=== PATIENT | female | born 1975 | race Hispanic/Latino ===

== ENCOUNTER 2019-07-17 20:39 | Emergency (ER) | payer SELFPAY ==
[2019-07-17] MEDS ORDERED: LEVALBUTEROL 1.25 MG/3 ML NEB ONE (23:09)
[2019-07-17] MEDS ORDERED: ACETAMINOPHEN 500 MG TAB ONE ×2 (23:10→23:25)
[2019-07-17 23:43] LABS: Absolute Lymphocytes (CBC) 3.1 K/uL (0.7-4.9); Basophils % 0.6 % (0-1.3); Hematocrit 44.5 % (36.0-45.0); MPV 7.2 fL (7.6-11.3); Protime INR 1.04; RBC Red Blood Cell Count 4.72 M/uL (3.86-4.86)
[2019-07-17 23:46] LABS: Urine Blood NEGATIVE (NEG); Urine Glucose NEGATIVE (NEG); Urine Protein NEGATIVE (NEG)
[2019-07-18 00:03] LABS: ALT/SGPT 51 U/L (12-78); AST/SGOT 36 U/L (15-37); Albumin 3.9 g/dL (3.4-5.0); Alkaline Phosphatase 134 U/L (45-117); BUN Blood Urea Nitrogen 11 mg/dL (7-18); Bicarbonate 27 mmol/L (21-32); Bilirubin Direct 0.1 mg/dL (0-0.2); Bilirubin Total 0.4 mg/dL (0.2-1.0); Glucose Level 99 mg/dL (74-106); Lipase 143 U/L (73-393); Magnesium 2.3 mg/dL (1.8-2.4); NT PRO-BNP 12 pg/mL (<125); Potassium 4.1 mmol/L (3.5-5.1); Protein, Total 8.4 g/dL (6.4-8.2); Sodium Level 141 mmol/L (136-145); Troponin (Emerg Dept Use Only) < 0.02 ng/mL (0.0-0.045)
--- NOTE | 2019-07-18 02:19 | ER ---
Nurse's Notes [facility] Name: Mee Cassidy Age: 43 yrs Sex: Female : 1975 Arrival Date: 07/17/2019 Time: 20:54 Bed 18 Private MD: Diagnosis: cough;L Flank pain Presentation: 07/17 21:06 Presenting complaint: Patient states: left side pain X10 days [employer]. pt does not speak ak1 brazilian. Transition of care: patient was not received from another setting of care. Onset of symptoms is unknown. Risk Assessment: Do you want to hurt yourself or someone else? Patient reports no desire to harm self or others. Initial Sepsis Screen: Does the patient meet any 2 criteria? No. Patient's initial sepsis screen is negative. Does the patient have a suspected source of infection? No. Patient's initial sepsis screen is negative. Care prior to arrival: None. 21:06 Method Of Arrival: Ambulatory ak1 21:06 Acuity: MIYA 3 ak1 Triage Assessment: 21:07 General: Appears in no apparent distress. Behavior is calm, cooperative. 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 - Social history:: Smoking status: unknown. - Ebola Screening: : No symptoms or risks identified at this time. - Family history:: not pertinent. - Hospitalizations: : No recent hospitalization is reported. Screenin:38 Abuse screen: Denies threats or abuse. Denies injuries from another. Nutritional mg2 screening: No deficits noted. Tuberculosis screening: No symptoms or risk factors identified. Fall Risk IV access (20 points). Assessment: 23:36 General: Appears in no apparent distress. comfortable, Behavior is calm, cooperative. mg2 Pain: Complains of pain in left flank Pain does not radiate. Pain currently is 5 out of 10 on a pain scale. Quality of pain is described as aching, Pain began gradually, Is intermittent. Neuro: Level of Consciousness is awake, alert, obeys commands, Oriented to person, place, time, situation. Cardiovascular: Capillary refill < 3 seconds Patient's skin is warm and dry. Respiratory: Airway is patent Respiratory effort is even, unlabored, Respiratory pattern is regular, symmetrical. GI: No signs and/or symptoms were reported involving the gastrointestinal system. : Urine is clear, pls see urine dip. : Reports pain in left flank(s). EENT: No signs and/or symptoms were reported regarding the EENT system. Derm: Skin is intact, is healthy with good turgor, Skin is pink, warm \T\ dry. normal. Musculoskeletal: Circulation, motion, and sensation intact. Capillary refill < 3 seconds. 07/18 00:44 Reassessment: Patient appears in no apparent distress at this time. Patient and/or tr5 family updated on plan of care and expected duration. Pain level reassessed. Patient is alert, oriented x 3, equal unlabored respirations, skin warm/dry/pink. 01:40 Reassessment: Patient appears in no apparent distress at this time. Patient and/or tr5 family updated on plan of care and expected duration. Pain level reassessed. Patient is alert, oriented x 3, equal unlabored respirations, skin warm/dry/pink. 02:40 Reassessment: Patient appears in no apparent distress at this time. Patient and/or jb4 family updated on plan of care and expected duration. Pain level reassessed. Patient is alert, oriented x 3, equal unlabored respirations, skin warm/dry/pink. PT and family verbalized understanding of d/c and follow up instructions. Ambulated out of ED with steady gait. Vital Signs: 07/17 21:07 BP 145 / 104; Pulse 73; Resp 16; Temp 98; Pulse Ox 98% on R/A; Weight 81.65 kg (R); ak1 Height 5 ft. 3 in. (160.02 cm) (R); Pain 6/10; 23:38 BP 146 / 96; Pulse 75; Resp 18; Pulse Ox 100% on R/A; mg2 07/18 00:44 BP 135 / 95; Pulse 77; Resp 15; Pulse Ox 97% on R/A; tr5 01:40 BP 134 / 87; Pulse 67; Resp 18; Pulse Ox 96% on R/A; tr5 02:40 BP 131 / 88; Pulse 74; Resp 16; Pulse Ox 100% on R/A; jb4 07/17 21:07 Body Mass Index 31.89 (81.65 kg, 160.02 cm) ak1 ED Course: 07/17 20:54 Patient arrived in ED. ak1 21:07 Triage completed. ak1 21:07 Arm band placed on Patient placed in waiting room, Patient notified of wait time. ak1 22:27 Naldo Barrett, MARCELINA is Primary Nurse. mg2 22:44 Eldon Yen MD is Attending Physician. wa 23:32 Bed in low position. Call light in reach. Side rails up X 1. Warm blanket given. Verbal jp3 reassurance given. environmental monitoring specialist on. Pulse ox on. NIBP on. 23:32 EKG done, by ED staff, reviewed by Eldon Yen MD. jp3 23:38 No provider procedures requiring assistance completed. Inserted saline lock: 20 gauge mg2 in right antecubital area, using aseptic technique. Blood collected. 07/18 00:20 X-ray completed. Patient tolerated procedure well. kw 00:22 Radiology exam delayed due to IV insertion attempt and/or patient not having kw appropriate IV at this time. patient receiving breathing treatment at this time. EKG. 01:01 XRAY Chest Pa And Lat (2 Views) In Process Unspecified. EDMS 01:34 Stone Protocol In Process Unspecified. EDMS 02:17 Addison Bergman MD is Referral Physician. wa 02:40 IV discontinued, intact, bleeding controlled, No redness/swelling at site. Pressure jb4 dressing applied. Administered Medications: 07/17 23:35 Drug: Xopenex 1.25 mg Route: Inhalation; mg2 23:35 Drug: Tylenol 1000 mg Route: PO; mg2 07/18 00:59 Follow up: Response: No adverse reaction tr5 02:39 Drug: TORadol 30 mg Route: IVP; Site: right antecubital; jb4 02:40 Follow up: Response: Medication administered at discharge. jb4 Outcome: 02:18 Discharge ordered by . wa 02:40 Discharged to home ambulatory. jb4 02:40 Condition: stable 02:40 Discharge instructions given to patient, family, Instructed on discharge instructions, follow up and referral plans. medication usage, Demonstrated understanding of instructions, follow-up care, medications, Prescriptions given X 3. 02:42 Patient left the ED. jb4 Signatures: Dispatcher [employer] EDKY Halley Shelton Amber, RN RN ak1 Tee Do RN RN jb4 Eldon Yen MD MD wa Gardose, Michele, RN RN mg2 Jean Carlos Bourgeois jp3 Esdras Stanley RN RN tr5
--- NOTE | 2019-07-18 02:20 | EDPHYS ---
Physician Documentation [facility] Name: Mee Cassidy Age: 43 yrs Sex: Female : 1975 Arrival Date: 07/17/2019 Time: 20:54 Bed 18 Private MD: ED Physician Eldon Yen HPI: 07/18 02:09 This 43 yrs old Female presents to ER via Ambulatory with complaints of cough. wa left flank pain. 02:09 The patient or guardian reports cough, that is constant, with no sputum. Onset: The wa symptoms/episode began/occurred 10 day(s) ago. Severity of symptoms: At their worst the symptoms were moderate, in the emergency department the symptoms are actually worse, moderately. Modifying factors: The symptoms are alleviated by nothing, the symptoms are aggravated by nothing. Associated signs and symptoms: Pertinent positives: L flank pain x 2 days, Pertinent negatives: chest pain, diarrhea, fever, nausea, rhinorrhea, sore throat, vomiting. The patient has not experienced similar symptoms in the past. The patient has not recently seen a physician. L flank pain x 2 days. cough x 1 week. . 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 - Social history:: Smoking status: unknown. - Ebola Screening: : No symptoms or risks identified at this time. - Family history:: not pertinent. - Hospitalizations: : No recent hospitalization is reported. ROS: 07/18 02:11 Constitutional: Negative for fever, chills, and weight loss, Eyes: Negative for injury, wa pain, redness, and discharge, ENT: Negative for injury, pain, and discharge, Neck: Negative for injury, pain, and swelling, Abdomen/GI: Negative for abdominal pain, nausea, vomiting, diarrhea, and constipation, : Negative for injury, bleeding, discharge, and swelling, MS/Extremity: Negative for injury and deformity, Skin: Negative for injury, rash, and discoloration, Neuro: Negative for headache, weakness, numbness, tingling, and seizure, Psych: Negative for depression, anxiety, suicide ideation, homicidal ideation, and hallucinations. Cardiovascular: Negative for chest pain, edema, orthopnea, palpitations, paroxysmal nocturnal dyspnea. Respiratory: Positive for cough, with no reported sputum, Negative for shortness of breath. Abdomen/GI: Positive for of the L flank, Negative for nausea and vomiting, diarrhea, constipation. All other systems are negative. Exam: 02:12 Constitutional: This is a well developed, well nourished patient who is awake, alert, wa and in no acute distress. Head/Face: Normocephalic, atraumatic. Eyes: Pupils equal round and reactive to light, extra-ocular motions intact. Lids and lashes normal. Conjunctiva and sclera are non-icteric and not injected. Cornea within normal limits. Periorbital areas with no swelling, redness, or edema. ENT: Nares patent. No nasal discharge, no septal abnormalities noted. Tympanic membranes are normal and external auditory canals are clear. Oropharynx with no redness, swelling, or masses, exudates, or evidence of obstruction, uvula midline. Mucous membranes moist. Neck: Trachea midline, no thyromegaly or masses palpated, and no cervical lymphadenopathy. Supple, full range of motion without nuchal rigidity, or vertebral point tenderness. No Meningismus. Chest/axilla: Normal chest wall appearance and motion. Nontender with no deformity. No lesions are appreciated. Cardiovascular: Regular rate and rhythm with a normal S1 and S2. No gallops, murmurs, or rubs. Normal PMI, no JVD. No pulse deficits. Abdomen/GI: Soft, non-tender, with normal bowel sounds. No distension or tympany. No guarding or rebound. No evidence of tenderness throughout. Back: No spinal tenderness. No costovertebral tenderness. Full range of motion. Skin: Warm, dry with normal turgor. Normal color with no rashes, no lesions, and no evidence of cellulitis. MS/ Extremity: Pulses equal, no cyanosis. Neurovascular intact. Full, normal range of motion. Neuro: Awake and alert, GCS 15, oriented to person, place, time, and situation. Cranial nerves II-XII grossly intact. Motor strength 5/5 in all extremities. Sensory grossly intact. Cerebellar exam normal. Normal gait. Psych: Awake, alert, with orientation to person, place and time. Behavior, mood, and affect are within normal limits. 02:12 Respiratory: the patient does not display signs of respiratory distress, Respirations: normal, Breath sounds: are clear throughout, Respiratory rate: nml Vital Signs: 07/17 21:07 BP 145 / 104; Pulse 73; Resp 16; Temp 98; Pulse Ox 98% on R/A; Weight 81.65 kg (R); ak1 Height 5 ft. 3 in. (160.02 cm) (R); Pain 6/10; 23:38 BP 146 / 96; Pulse 75; Resp 18; Pulse Ox 100% on R/A; mg2 07/18 00:44 BP 135 / 95; Pulse 77; Resp 15; Pulse Ox 97% on R/A; tr5 01:40 BP 134 / 87; Pulse 67; Resp 18; Pulse Ox 96% on R/A; tr5 02:40 BP 131 / 88; Pulse 74; Resp 16; Pulse Ox 100% on R/A; jb4 07/17 21:07 Body Mass Index 31.89 (81.65 kg, 160.02 cm) ak1 MDM: 07/17 22:45 Patient medically screened. 07/18 02:14 Differential Diagnosis: Bronchitis Upper Respiratory Infection Pneumonia Other r/o ca ureterolithiasis. Data reviewed: vital signs, nurses notes. Test interpretation: by ED physician or midlevel provider: CXR: no acute process. . 02:15 Test interpretation: by ED physician or midlevel provider: labs noted wnl. CXR nml. CT wa abd/pelvis: no acute process. EKG: interp by me: HR 67. sinus. nml axis. wnl. . Response to treatment: the patient's symptoms have markedly improved after treatment. 02:36 Test interpretation: by ED physician or midlevel provider:. 07/17 23:06 Order name: BMP 07/17 23:06 Order name: CBC with Diff 07/17 23:06 Order name: Hepatic Function 07/17 23:06 Order name: Lipase 07/17 23:06 Order name: Magnesium 07/17 23:06 Order name: NT PRO-BNP 07/17 23:06 Order name: PT-INR 07/17 23:06 Order name: Troponin (emerg Dept Use Only) 07/17 23:07 Order name: D-Dimer 07/17 23:30 Order name: Urine Dipstick--Ancillary (enter results) cm6 07/17 23:30 Order name: Urine --Ancillary (enter results) cm6 07/17 23:44 Order name: CBC with Automated Diff; Complete Time: 00:33 EDMS 07/17 23:48 Order name: Protime (+INR); Complete Time: 00:33 EDMS 07/17 23:48 Order name: D-Dimer; Complete Time: 00:33 EDMS 07/17 23:06 Order name: XRAY Chest Pa And Lat (2 Views) ca 07/17 23:06 Order name: EKG; Complete Time: 23:07 ca 07/17 23:06 Order name: Cardiac monitoring; Complete Time: 23:35 ca 07/17 23:48 Order name: Urine --Ancillary; Complete Time: 00:33 EDMS 07/17 23:48 Order name: Urine Dipstick-Ancillary; Complete Time: 00:33 EDMS 07/18 00:04 Order name: Basic Metabolic Panel; Complete Time: 00:33 EDMS 07/18 00:04 Order name: Liver (Hepatic) Function; Complete Time: 00:33 EDMS 07/18 00:04 Order name: Troponin (Emerg Dept Use Only); Complete Time: 00:33 EDMS 07/18 00:04 Order name: NT PRO-BNP; Complete Time: 00:33 EDMS 07/18 00:04 Order name: Magnesium; Complete Time: 00:33 EDMS 07/18 00:04 Order name: Lipase; Complete Time: 00:33 EDMS 07/18 01:16 Order name: Stone Protocol [facility] 07/17 23:06 Order name: EKG - Nurse/Tech; Complete Time: 23:35 ca 07/17 23:06 Order name: IV Saline Lock; Complete Time: 23:35 ca 07/17 23:06 Order name: Labs collected and sent; Complete Time: 23:35 ca 07/17 23:06 Order name: O2 Per Protocol; Complete Time: 23:35 ca 07/17 23:06 Order name: O2 Sat Monitoring; Complete Time: 23:36 ca Administered Medications: 07/17 23:35 Drug: Xopenex 1.25 mg Route: Inhalation; mg2 23:35 Drug: Tylenol 1000 mg Route: PO; mg2 07/18 00:59 Follow up: Response: No adverse reaction tr5 02:39 Drug: TORadol 30 mg Route: IVP; Site: right antecubital; jb4 02:40 Follow up: Response: Medication administered at discharge. jb4 Disposition: 07/18/19 02:18 Discharged to Home. Impression: cough, L Flank pain. - Condition is Stable. - Discharge Instructions: Cough, Adult, [id number], Flank Pain, [id number]. - Prescriptions for Albuterol Sulfate 90 mcg/actuation - inhale 1-2 puff by INHALATION route every 4-6 hours; 1 Inhaler. Tramadol 50 mg Oral Tablet - take 1 tablet by ORAL route every 8 hours as needed; 12 tablet. Zithromax Z- Link 250 mg Oral Tablet - take 1 tablet by ORAL route as directed for 5 days Day 1 - take two (2) tablets one time. Day 2, 3, 4 , 5 take one (1) tablet once daily.; 6 tablet. - Medication Reconciliation Form, Thank You Letter, Antibiotic Education, Prescription Opioid Use form. - Follow up: Addison Bergman MD; When: 1 - 2 days; Reason: Recheck today's complaints. - Problem is new. - Symptoms have improved. - Notes: take medication as prescribed. follow up with your doctor within 2 days for further evaluation Signatures: Dispatcher [employer] [facility] Concepción Day RN RN ak1 Tee Do RN RN jb4 Eldon Yen MD MD wa Gardose, Michele, RN RN mg2 Esdras Stanley RN tr5 Corrections: (The following items were deleted from the chart) 01:16 00:37 Abdomen Pelvis Wo Con+CT.RAD.BRZ ordered. [facility] EDMS 02:42 02:18 07/18/2019 02:18 Discharged to Home. Impression: cough; L Flank pain. Condition jb4 is Stable. Forms are Medication Reconciliation Form, Thank You Letter, Antibiotic Education, Prescription Opioid Use. Follow up: Addison Bergman; When: 1 - 2 days; Reason: Recheck today's complaints. Problem is new. Symptoms have improved. wa
[2019-07-18] MEDS ORDERED: KETOROLAC 30 MG/ML INJ ONE (02:33)
--- NOTE | 2019-07-18 07:31 | EKG ---
Test Date: 2019-07-17 Test Time: 23:28:00 Paper Bag Inspector: SABRINA MEASUREMENT RESULTS: Intervals: Rate: 67 NM: 170 QRSD: 84 QT: 442 QTc: 467 [place]: P: 56 NM: 170 QRS: -10 T: 13 INTERPRETIVE STATEMENTS: Normal sinus rhythm Normal ECG No previous ECG available for comparison Electronically Signed On 07-18-19 07:31:11 CDT by Jan Singer
--- NOTE | 2019-07-18 08:31 | RAD REPORT ---
EXAM DESCRIPTION: RAD - Chest Pa And Lat (2 Views) - 07/18/2019 12:21 am CLINICAL HISTORY: CHEST PAIN Chest pain. COMPARISON: No comparisons FINDINGS: The lungs are clear. The heart is upper limit of normal in size. No displaced fractures. IMPRESSION: No acute or concerning finding suspected.
--- NOTE | 2019-07-18 11:28 | RAD REPORT ---
EXAM DESCRIPTION: CT ABDOMEN PELVIS WITHOUT IV CONTRAST CLINICAL HISTORY: Left-sided abdominal pain. COMPARISON: None. TECHNIQUE: CT scan of the abdomen and pelvis was performed without IV contrast. This exam was perfor med according to our departmental dose-optimization program, which includes automated exposure contro l, adjustment of the mA and/or kV according to patient size and/or use of iterative reconstruction te chnique. Motion artifact limits evaluation. FINDINGS: Scattered atelectasis at the lung bases. No pleural or pericardial effusions. The liver, s pleen, pancreas, gallbladder, adrenal glands, and kidneys are unremarkable. No hydronephrosis or urin nupur stones are seen. An intrauterine device is noted. No small bowel obstruction. The appendix is normal. No evidence of acute diverticulitis. No adenopath y, free fluid, or free air is identified. The aorta is normal caliber. The osseous structures are int act. IMPRESSION: Limited study due to motion artifact. No acute abdominal or pelvic pathology. Electronically signed by: Bobby Mendoza MD 07/18/2019 1:44 AM CDT Due to temporary technical issues with the PACS/Fluency reporting system, reports are being signed by the in house radiologist as a courtesy to ensure prompt reporting. The interpreting radiologist is f ully responsible for the content of the report.
== END 2019-07-18 02:42 | disposition home or self-care (01) ==
LOC: ER 20:39
DX: R05 Cough (principal); R10.9 Unspecified abdominal pain
CPT/HCPCS: 36415; 71046; 74176; 76377; 80048; 80076; 81003; 81025; 83690; 83735; 83880; 84484; 85025; 85379; 85610; 93005; 96374; 99285